=== PATIENT | female | born 1995 | race Hispanic/Latino ===

== ENCOUNTER 2019-10-01 16:56 | Emergency (ER) | payer BC ==
[~2019-10-01] VITALS: Ht 160 cm; Wt 81.2 kg
[2019-10-01] MEDS ORDERED: FAMOTIDINE 20 MG/2 ML VIAL IV STA (17:06)
[2019-10-01] MEDS ORDERED: EPINEPHRINE HCL 1:1000 1ML 1 MG/ML AMP ONE (17:12)
[2019-10-01] MEDS ORDERED: METHYLPREDNISOLONE SOD SUCC 125 MG/2ML VIAL ONE (17:12)
[2019-10-01] MEDS ORDERED: METHYLPREDNISOLONE SOD SUCC 125 MG/2ML VIAL IV ONE (17:15)
[2019-10-01] MEDS ORDERED: DIPHENHYDRAMINE HCL INJ 50 MG/ML VIAL IV ONE (17:15)
[2019-10-01] MEDS ORDERED: EPINEPHRINE HCL 1:1000 1ML 1 MG/ML AMP INJ ONE (17:15)
[2019-10-01] MEDS ORDERED: PREDNISONE20 MG PO (18:02)
== END 2019-10-01 18:07 | disposition home or self-care (01) ==
LOC: FSED 16:56
DX: T78.3XXA Angioneurotic edema, initial encounter (principal); T61.784A Other shellfish poisoning, undetermined, initial encounter
CPT/HCPCS: 80053; 85025; 99283; J0171; J1200; J2930